=== PATIENT | female | born 1970 | race Caucasian/White ===

== ENCOUNTER 2016-06-13 10:06 | Emergency (ER) | payer OTHER ==
[~2016-06-13] VITALS: Ht 162.6 cm; Wt 67.7 kg
[~2016-06-13 10:06] MED LIST: ANTIVERT25 MG PO; CELEXA10 MG PO; FLOVENT 11120 INHALA IH; PROTONIX40 MG PO; TRAZODONE HCL50 MG PO; XANAX0.25 MG PO; XANAX0.5 MG PO; XOPENEX0.31 MG/3 IH; ZOLOFT100 MG PO; ZOLOFT50 MG PO
[2016-06-13] MEDS ORDERED: ATORVASTATIN CA20 MG PO (10:14)
[2016-06-13] MEDS ORDERED: ESOMEPRAZOLE MA40 MG PO (10:14)
[2016-06-13] MEDS ORDERED: LORATADINE10 M2 PO (10:15)
[2016-06-13] MEDS ORDERED: MULTIVITAMIN1 EAC2 PO (10:15)
[2016-06-13 10:53] LABS: EOSINOPHIL COUNT 0.1 K/uL (0-0.3); HEMATOCRIT 35.6 % (36.0-46.0); LYMPHOCYTE COUNT 1.6 K/uL (1.0-2.8); MCH 28.7 PG (29.0-34.0); MCHC 33.7 G/DL (30.0-36.0); MCV 85.2 FL (83-99); MEAN PLAT.VOLUME 10.3 uM^3 (9.5-12.4); MONOCYTE (%) 6.5 % (3-12); MONOCYTE COUNT 0.3 K/uL (0-0.8); NEUTROPHIL (%) 59.7 % (45-76); NEUTROPHIL COUNT 2.9 K/uL (1.8-6.4); PLATELET COUNT 195 K/uL (156-360); RBC DIS.WIDTH-CV 12.6 % (11.8-14.6); RBC DIS.WIDTH-SD 38.6 % (39-53); RED BLOOD COUNT 4.18 M/uL (3.80-5.20); WHITE BLOOD COUNT 4.8 K/uL (4.1-10.2)
[2016-06-13 11:03] LABS: CHLORIDE 106 mEq/L (99-109); POTASSIUM 3.9 mEq/L (3.7-5.4); SODIUM 140 mEq/L (136-147)
[2016-06-13 11:05] LABS: D-DIMER ELISA 0.33 mg/L FEU (< 0.57); GLUCOSE 95 mg/dL (70-99); PROTHROMBIN TIME 10.6 (9.2-11.2); PTT 28.2 (25-32)
[2016-06-13 11:07] LABS: ANION GAP 9 MEQ/L (2-14)
[2016-06-13 11:10] LABS: GFR ESTIMATE (CALCULATED) > 59 mL/min/; UREA NITROGEN (BUN) 16 mg/dL (9-23)
[2016-06-13 11:14] LABS: TROP-I INTERPRETATION NEGATIVE; TROPONIN-I < 0.01 ng/mL (0.0-0.30)
[2016-06-13 11:41] LABS: TOTAL BILIRUBIN 0.3 mg/dL (0.0-1.0)
[2016-06-13 11:42] LABS: ALKALINE PHOSPHATASE 85 IU/L (3-129)
[2016-06-13 11:44] LABS: DIRECT BILIRUBIN 0.2 mg/dL (0.0-0.3)
[2016-06-13 13:17] LABS: TROP-I INTERPRETATION NEGATIVE; TROPONIN-I < 0.01 ng/mL (0.0-0.30)
[2016-06-13] MEDS ORDERED: MOTRIN800 MG PO (13:25)
[2016-06-13 13:54] VITALS: BP 116/73
== END 2016-06-13 14:15 | disposition home or self-care (01) ==
LOC: EME 10:06
PROVIDERS: Emergency Medicine
DX: R07.89 Other chest pain (principal)
CPT/HCPCS: 71010; 80048; 80076; 84484; 85025; 85379; 85610; 85730; 93005; 99281; 99284